=== PATIENT | female | born 1970 ===

== ENCOUNTER 2024-01-28 15:40 | Outpatient (CLI) | payer OTHER, SELFPAY ==
--- NOTE | ~2024-01-28 | CT_ITS ---
EXAMINATION: CT sinus wo con DATE: 01/28/2024 15:59 INDICATION: Chronic sinusitis, unspecified. TECHNIQUE: Computed tomography (CT) of the paranasal sinuses was performed without intravenous contra st. Iterative reconstruction technique was employed. The dose-length product was 304.78 mGy-cm. COMPARISON: None FINDINGS: There is mild mucosal thickening in left frontal sinus and the bilateral ethmoid sinuses an d sphenoid sinuses and left maxillary sinus. Right maxillary sinus is clear. The ostiomeatal units ar e widely patent. The middle turbinates are paradoxical. There is mray bullosa involving left middle turbinate. There is rightward deviation of the nasal septum. IMPRESSION: 1. Mild mucosal thickening in the paranasal sinuses. Reviewed, dictated and finalized at location A.
== END 2024-01-28 15:41 ==
LOC: MICIMG 15:41
PROVIDERS: PCP Allergy & Immunology; Visit Provider Allergy & Immunology
DX: J32.9 Chronic sinusitis, unspecified (principal)
CPT/HCPCS: 70486